=== PATIENT | female | born 1970 | race African-American/Black ===

== ENCOUNTER → 2017-10-18 | Outpatient (CLI) | payer OTHER | END | disposition home or self-care (01) | LOC: PF 08:11 | DX: J45.909 Unspecified asthma, uncomplicated (principal) | CPT/HCPCS: 94010 ==

== ENCOUNTER → 2018-01-10 | Outpatient (CLI) | payer MEDICARE, MEDICAID, OTHER | END | disposition home or self-care (01) | LOC: ECHO 09:59 | DX: M79.89 Other specified soft tissue disorders (principal); I50.30 Unspecified diastolic (congestive) heart failure; I73.9 Peripheral vascular disease, unspecified; I27.20 Pulmonary hypertension, unspecified; I08.1 Rheumatic disorders of both mitral and tricuspid valves | CPT/HCPCS: 93306; 93970 ==